=== PATIENT | female | born 1990 | race Caucasian/White ===

== ENCOUNTER → 2017-06-30 | Outpatient (CLI) | payer OTHER ==
[~2017-06-30] MED LIST: LEVO175T2 PO; NEXI40GR PO; OCEL3TAB PO; SERT50TA PO; SING10TA32 PO; SPIR50TA2 PO
--- NOTE | 2017-06-30 09:57 | REP ---
Hepatobiliary scan and gallbladder ejection fraction: History: Right upper quadrant pain. Technique: 6.6 mCi of technetium-99m mebrofenin was injected and sequential anterior images are acquired. 65 minutes after the mebrofenin injection, the patient consumed 8 ounces Ensure and an additional 60 minutes of imaging was acquired. Regions of interest are plotted around the gallbladder. Findings: The initial hepatocellular parenchymal uptake phase is normal and homogeneous. Intra- and extra-hepatic bile ducts and duodenum are labeled by the 10 -minute image. The gallbladder is first labeled on the 10 -minute image. There is normal washout from the liver parenchyma into the gallbladder and small intestine on subsequent images. The gallbladder ejection fraction is 48 %. Values greater than 35 % are considered normal with this technique. Impression: Normal hepatobiliary scan and normal gallbladder ejection fraction. Signed by Bharat Lincoln MD 06/30/2017 09:49 A
== END ==
LOC: M RAD 07:21
PROVIDERS: ATTEND Physician Assistant
DX: R10.9 Unspecified abdominal pain (principal)

== ENCOUNTER 2017-07-05 13:30 | Emergency (ER) | payer OTHER ==
[~2017-07-05] VITALS: Ht 152.4 cm; Wt 83.2 kg
[2017-07-05] MEDS ORDERED: OCEL3TAB PO (13:49)
[2017-07-05] MEDS ORDERED: SERT50TA PO (13:49)
[2017-07-05] MEDS ORDERED: LEVO175T2 PO (13:49)
[2017-07-05] MEDS ORDERED: SPIR50TA2 PO (13:49)
[2017-07-05] MEDS ORDERED: SING10TA32 PO (13:49)
[2017-07-05 17:54] LABS: BASO # 0.1 10^3/uL (0.0-0.2); BASO % 0.6 % (0.0-1.0); EOS % 11.2 % (0.0-3.0); IMMATURE GRANULOCYTE % 0.3 % (0-0); LYMPH # 3.7 10^3/uL (1.5-6.5); LYMPH % 42.5 % (24.0-44.0); MEAN CORPUSCULAR HEMOGLOBIN 29.6 pg (27.0-33.0); MEAN CORPUSCULAR HGB CONC 33.9 g/dl (32.0-36.5); MEAN CORPUSCULAR VOLUME 87.2 fl (80.0-96.0); MONO # 0.5 10^3/uL (0.0-0.8); MONO % 6.1 % (0.0-5.0); NEUTROPHILS # 3.4 10^3/uL (1.8-7.7); NEUTROPHILS % 39.3 % (36.0-66.0); PLATELET COUNT, AUTOMATED 294 10^3/uL (150-450); RED CELL DISTRIBUTION WIDTH 11.7 % (11.5-14.5); WHITE BLOOD COUNT 8.6 10^3/uL (4.0-10.0)
[2017-07-05 18:07] LABS: ALBUMIN 3.9 GM/DL (3.2-5.2); ALKALINE PHOSPHATASE 61 U/L (45-117); ALT/SGPT 21 U/L (12-78); AMYLASE 120 U/L (25-115); ANION GAP 9 MEQ/L (8-16); AST/SGOT 7 U/L (7-37); BILIRUBIN,TOTAL 0.2 MG/DL (0.2-1.0); BLOOD UREA NITROGEN 12 MG/DL (7-18); CALCIUM LEVEL 9.7 MG/DL (8.5-10.1); CARBON DIOXIDE LEVEL 27 MEQ/L (21-32); CHLORIDE LEVEL 107 MEQ/L (98-107); CREATININE FOR GFR 0.82 MG/DL (0.55-1.02); GLOMERULAR FILTRATION RATE > 60.0 (>60); GLUCOSE, FASTING 84 MG/DL (70-105); POTASSIUM SERUM 4.1 MEQ/L (3.5-5.1); SODIUM LEVEL 143 MEQ/L (136-145); TOTAL PROTEIN 7.8 GM/DL (6.4-8.2)
[2017-07-05] MEDS ORDERED: ISOVUE-370 76% 100ML VIAL (Q9967) As Ordered ONE (18:09)
--- NOTE | 2017-07-05 18:40 | REPUSA ---
CT of the abdomen and pelvis with contrast Clinical statement: Pain. Technique: Multiple axial CT images were obtained from the base of the lungs through the floor of the pelvis utilizing 5 mm axial slices after administration of nonionic intravenous contrast. Coronal an d sagittal reconstructions were also obtained. No comparison is available. Findings: Chest: The visualized lung bases are clear. Abdomen: The liver, spleen, pancreas, kidneys, gallbladder, and adrenal glands are unremarkable. The aorta is within normal limits. There is no evidence of abdominal lymphadenopathy or ascites. Pelvis: The bowel is unremarkable, with no obstructive or inflammatory changes. The urinary bladder i s within normal limits. The other pelvic structures appear grossly intact. There is no evidence of pe lvic lymphadenopathy or ascites. Bones: There are no suspicious osseous abnormalities seen. 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 There is no evidence of spondylolisthesis. Impression: 1. No obstructive or inflammatory bowel changes. 2. 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 No evidence of spondylolisthesis.
[2017-07-05] MEDS ORDERED: NEXI40GR PO (19:35)
[2017-07-05 20:01] VITALS: BP 136/67
== END 2017-07-05 20:04 | disposition home or self-care (01) ==
LOC: M ED 13:30
DX: R10.31 Right lower quadrant pain (principal); J45.909 Unspecified asthma, uncomplicated; G43.909 Migraine, unspecified, not intractable, without status migrainosus; E28.2 Polycystic ovarian syndrome; Z79.899 Other long term (current) drug therapy
CPT/HCPCS: 36415; 74177; 80053; 81001; 81025; 82150; 83605; 83690; 85025; 99284; Q9967

== ENCOUNTER → 2018-09-18 | Outpatient (REF) | payer OTHER ==
[~2018-09-18] MED LIST changes: -SPIR50TA2 PO; +SPIR50TA4 PO; +SYNT100T PO; +TRAZ-186 PO; +ZOLO100T PO
== END ==
LOC: M LAB REF 13:56
PROVIDERS: ATTEND Internal Medicine Gastroenterology
DX: K58.0 Irritable bowel syndrome with diarrhea (principal)

== ENCOUNTER → 2018-12-13 | Outpatient (REF) | payer OTHER ==
[~2018-12-13] MED LIST changes: +SERT-141 PO; -SERT50TA PO
== END ==
LOC: M LAB REF 16:40
PROVIDERS: ATTEND Internal Medicine Gastroenterology
DX: K58.2 Mixed irritable bowel syndrome (principal)

== ENCOUNTER 2019-01-12 12:58 | Day surgery (SDC) | payer OTHER ==
[~2019-01-12] VITALS: Ht 152.4 cm; Wt 104.4 kg
[~2019-01-12 12:58] MED LIST changes: +B COTAB3 PO; +D 50CAP PO; +IRON240T PO; +METF500T13 PO; +NS 1,000 ML IV ONE
[2019-01-12] MEDS ORDERED: PROPOFOL 500 MG/50 ML VIAL As Ordered ONE (13:24)
[2019-01-12] MEDS ORDERED: fentaNYL 100 MCG/2 ML INJECTION (J3010) As Ordered ONE (13:24)
[2019-01-12] MEDS ORDERED: LIDOCAINE 2% INJ 100 MG/5 ML SDV (FOR ANES.) As Ordered ONE (13:55)
[2019-01-12] MEDS ORDERED: ONDANSETRON 4MG/2ML VIAL (J2405) As Ordered ONE (14:18)
--- NOTE | 2019-01-12 14:19 | ROOR ---
Patient Name: Jenni Finley Procedure Date: 01/12/2019 2:08 PM Date of : 1990 Age: 28 Room: [facility] Gender: Female Note Status: Finalized Procedure: Upper GI endoscopy Indications: Dyspepsia, Heartburn Providers: Jorge Luis GREWAL MD Referring MD: MAJOR MASON MD Requesting Provider: Medicines: Monitored Anesthesia Care Complications: No immediate complications. Procedure: Pre-Anesthesia Assessment: - The heart rate, respiratory rate, oxygen saturations, blood pressure, adequacy of pulmonary ventilation, and response to care were monitored throughout the procedure. The Endoscope was introduced through the mouth, and advanced to the second part of duodenum. The upper GI endoscopy was accomplished without difficulty. The patient tolerated the procedure well. Findings: The esophagus was normal. The stomach was normal. The examined duodenum was normal. Impression: - Normal esophagus. - Normal stomach. - Normal examined duodenum. - No specimens collected. Recommendation: - Continue present medications. - Observe patient's clinical course. Jorge Luis Grewal MD Jorge Luis GREWAL MD 01/12/2019 2:19:06 PM Electronically signed by Jorge Luis GREWAL MD Number of Addenda: 0 Note Initiated On: 01/12/2019 2:08 PM Estimated Blood Loss: Estimated blood loss: none.
--- NOTE | 2019-01-12 14:33 | ROOR ---
Patient Name: Jenni Finley Procedure Date: 01/12/2019 2:09 PM Date of : 1990 Age: 28 Room: [id number] Gender: Female Note Status: Finalized Procedure: Colonoscopy Indications: Mixed irritable bowel syndrome. History of IBS, Hx of C difficile related diarrhea vs colonisation. Has normal formed stools after treatment. Providers: Jorge Luis GREWAL MD Referring MD: MAJOR MASON MD Requesting Provider: Medicines: Monitored Anesthesia Care Complications: No immediate complications. Procedure: Pre-Anesthesia Assessment: - The heart rate, respiratory rate, oxygen saturations, blood pressure, adequacy of pulmonary ventilation, and response to care were monitored throughout the procedure. The Colonoscope was introduced through the anus and advanced to 10 cm into the ileum. The colonoscopy was performed without difficulty. The patient tolerated the procedure well. The quality of the bowel preparation was good. Findings: The perianal and digital rectal examinations were normal. The entire examined colon appeared normal on direct and retroflexion views. The terminal ileum appeared normal. Impression: - The entire examined colon is normal on direct and retroflexion views. - The examined portion of the ileum was normal. - No specimens collected. Recommendation: - Continue present medications. - Return to referring physician as previously scheduled. Jorge Luis Grewal MD Jorge Luis GREWAL MD 01/12/2019 2:33:19 PM Electronically signed by Jorge Luis GREWAL MD Number of Addenda: 0 Note Initiated On: 01/12/2019 2:09 PM Estimated Blood Loss: Estimated blood loss: none.
[2019-01-12 14:50] VITALS: BP 118/57
== END 2019-01-12 15:05 | disposition home or self-care (01) ==
LOC: M OPP 12:58
PROVIDERS: ATTEND Internal Medicine Gastroenterology
DX: K58.2 Mixed irritable bowel syndrome (principal); R10.13 Epigastric pain; R12 Heartburn; Z86.19 Personal history of other infectious and parasitic diseases
CPT/HCPCS: 43235; 45378; J2405; J3010